=== PATIENT | male | born 2000 | race Caucasian/White ===

== ENCOUNTER 2022-07-19 23:45 | Emergency (ER) | payer BC ==
[2022-07-20] MEDS ORDERED: HYDROCODONE/CHLORPHEN 5 ML/OSYR ONE (00:15)
[2022-07-20] MEDS ORDERED: dexAMETHasone 10 MG/ML VIAL ONE (00:16)
[2022-07-20 01:08] LABS: SARS-COV-2 RT PCR NEGATIVE (NEGATIVE)
--- NOTE | 2022-07-20 01:14 | ER ---
Nurse's Notes [facility] Name: Jamal Juárez Age: 22 yrs Sex: Male : 2000 Arrival Date: 07/19/2022 Time: 23:47 Bed 16 Private MD: Diagnosis: Streptococcal pharyngitis Presentation: 07/19 23:56 Chief complaint: Patient states: My tonsils are swollen and it hurts to swallow. It kd3 started yesterday, I don't think I have been around anyone that is sick. Coronavirus screen: Vaccine status: Patient reports being unvaccinated. Ebola Screen: No symptoms or risks identified at this time. Initial Sepsis Screen: Does the patient meet any 2 criteria? No. Patient's initial sepsis screen is negative. Does the patient have a suspected source of infection? No. Patient's initial sepsis screen is negative. Risk Assessment: Do you want to hurt yourself or someone else? Patient reports no desire to harm self or others. Onset of symptoms was July 19, 2022. 23:56 Method Of Arrival: Ambulatory kd3 23:56 Acuity: MILO 4 kd3 Triage Assessment: 23:57 General: Appears in no apparent distress. Behavior is calm, cooperative. Pain: kd3 Complains of pain in uvula, left aspect of posterior pharynx and right aspect of posterior pharynx. Neuro: Level of Consciousness is awake, alert, obeys commands, Oriented to person, place, time, situation. Respiratory: Airway is patent Trachea midline Respiratory effort is even, unlabored, Respiratory pattern is regular, symmetrical. Historical: - Allergies: 23:57 No Known Allergies; kd3 - Home Meds: 23:57 None [Active]; kd3 - PMHx: 23:57 None; kd3 - Immunization history:: Adult Immunizations up to date. - Social history:: Smoking status: Reported history of juuling and/or vaping. Screenin/27 00:23 [facility] ED Fall Risk Assessment (Adult) History of falling in the last 3 months, aa9 including since admission No falls in past 3 months (0 pts) Confusion or Disorientation No (0 pts) Intoxicated or Sedated No (0 pts) Impaired Gait No (0 pts) Mobility Assist Device Used No (0 pt) Altered Elimination No (0 pt) Score/Fall Risk Level 0 - 2 = Low Risk. Abuse screen: Denies threats or abuse. Denies injuries from another. Nutritional screening: No deficits noted. Tuberculosis screening: No symptoms or risk factors identified. Assessment: 00:22 General: Appears in no apparent distress. comfortable, slender, Behavior is calm, aa9 cooperative, appropriate for age. Pain: Complains of pain in neck Pain began gradually. Neuro: Level of Consciousness is awake, alert, obeys commands, Oriented to person, place, time, situation. Cardiovascular: Patient's skin is warm and dry. Respiratory: Airway is patent Trachea midline Respiratory effort is even, unlabored. GI: No signs and/or symptoms were reported involving the gastrointestinal system. : No signs and/or symptoms were reported regarding the genitourinary system. EENT: Reports difficulty swallowing since today. Derm: Skin is intact, is healthy with good turgor. Musculoskeletal: Swelling present in throat. Vital Signs: 07/19 23:56 BP 154 / 89; Pulse 98; Resp 16; Temp 98.9(O); Pulse Ox 100% on R/A; Weight 70.31 kg; kd3 Height 6 ft. 9 in. (205.74 cm); 23:56 Body Mass Index 16.61 (70.31 kg, 205.74 cm) kd3 ED Course: 23:47 Patient arrived in ED. ja2 23:55 Arthur Ingram NP is PHCP. pm1 23:55 Clemente Lee MD is Attending Physician. pm1 23:57 Triage completed. kd3 23:58 Arm band placed on. kd3 07/20 00:22 COVID-19/FLU A+B Sent. aa9 00:22 Strep Sent. aa9 00:24 Patient has correct armband on for positive identification. Bed in low position. Call aa9 light in reach. Adult w/ patient. 01:29 No provider procedures requiring assistance completed. Patient did not have IV access aa9 during this emergency room visit. Administered Medications: 00:22 Drug: Decadron (dexamethasone) 10 mg Route: IM; Site: left deltoid; aa9 00:53 Follow up: Response: No adverse reaction aa9 00:22 Drug: Tussionex Pennkinetic ER (chlorpheniramine-hydrocodone) Suspension 5 ml Route: PO;aa9 00:53 Follow up: Response: No adverse reaction aa9 Medication: 00:24 VIS not applicable for this client. aa9 Outcome: 01:14 Discharge ordered by . pm1 01:30 Discharged to home ambulatory, with family. aa9 01:30 Condition: stable 01:30 Discharge instructions given to patient, Instructed on discharge instructions, follow up and referral plans. medication usage, Demonstrated understanding of instructions, follow-up care, medications, Prescriptions given X 1. 01:31 Patient left the ED. aa9 Signatures: Arthur Ingram NP MAINTENANCE WORK[employer] pm1 Effie Liriano Kyli, RN RN kd3 Cherie Pineda, RN RN aa9
--- NOTE | 2022-07-20 01:15 | EDPHYS ---
Physician Documentation [facility] Name: Jamal Juárez Age: 22 yrs Sex: Male : 2000 Arrival Date: 07/19/2022 Time: 23:47 Bed 16 Private MD: ED Physician Clemente Lee HPI: 07/20 00:09 This 22 yrs old Male presents to ER via Ambulatory with complaints of Sore Throat. pm1 00:09 The patient presents with sore throat. The patient describes throat pain as raw, pm1 scratchy. Onset: The symptoms/episode began/occurred yesterday. Severity of symptoms: in the emergency department the symptoms are actually worse. Modifying factors: the symptoms are aggravated by fluids, foods, Patient's oral intake status: good. Associated signs and symptoms: The patient has no apparent associated signs or symptoms, Pertinent negatives fever. The patient has not experienced similar symptoms in the past. The patient has not recently seen a physician. Historical: - Allergies: 07/19 23:57 No Known Allergies; kd3 - Home Meds: 23:57 None [Active]; kd3 - PMHx: 23:57 None; kd3 - Immunization history:: Adult Immunizations up to date. - Social history:: Smoking status: Reported history of juuling and/or vaping. ROS: 07/20 00:09 Constitutional: Negative for fever, chills, and weight loss. pm1 Cardiovascular: Negative for chest pain, palpitations, and edema, Respiratory: Negative for shortness of breath, cough, wheezing, and pleuritic chest pain, Abdomen/GI: Negative for abdominal pain, nausea, vomiting, diarrhea, and constipation, Back: Negative for injury and pain, MS/Extremity: Negative for injury and deformity, Skin: Negative for injury, rash, and discoloration, Neuro: Negative for headache, weakness, numbness, tingling, and seizure. ENT: Positive for ear pain, sore throat. All other systems are negative. Exam: 00:09 Constitutional: This is a well developed, well nourished patient who is awake, alert, pm1 and in no acute distress. Head/Face: Normocephalic, atraumatic. 00:09 Skin: Warm, dry with normal turgor. Normal color with no rashes, no lesions, and no evidence of cellulitis. MS/ Extremity: Pulses equal, no cyanosis. Neurovascular intact. Full, normal range of motion. 00:09 Eyes: Exam is negative for acute changes. 00:09 ENT: External ear(s): are unremarkable, Ear canal(s): are normal, TM's: are normal, Mouth: no acute changes, Lips: normal, moist, Oral mucosa: normal, pink and intact, moist, Posterior pharynx: Tonsils: are normal in appearance, Uvula: normal, erythema, that is moderate. 00:09 Neck: Lymph nodes: lymphadenopathy is appreciated, anterior cervical nodes. 00:09 Cardiovascular: Exam negative for acute changes, Rate: normal, Rhythm: regular, Pulses: no pulse deficits are appreciated. 00:09 Respiratory: Exam negative for acute changes, respiratory distress, shortness of breath. 00:09 Neuro: Exam negative for acute changes, Orientation: is normal, Mentation: is normal, Motor: is normal, moves all fours. Vital Signs: 07/19 23:56 BP 154 / 89; Pulse 98; Resp 16; Temp 98.9(O); Pulse Ox 100% on R/A; Weight 70.31 kg; kd3 Height 6 ft. 9 in. (205.74 cm); 23:56 Body Mass Index 16.61 (70.31 kg, 205.74 cm) kd3 MDM: 23:55 Patient medically screened. pm1 07/20 01:13 Data reviewed: vital signs. pm1 01:13 Counseling: I had a detailed discussion with the patient and/or guardian regarding: the pm1 historical points, exam findings, and any diagnostic results supporting the discharge/admit diagnosis, lab results, the need for outpatient follow up, to return to the emergency department if symptoms worsen or persist or if there are any questions or concerns that arise at home. 01:13 Differential diagnosis: Strep, COVID, influenza, RSV. pm1 07/20 00:09 Order name: COVID-19/FLU A+B; Complete Time: 01:12 pm1 07/20 00:09 Order name: Strep; Complete Time: 01:12 pm1 Administered Medications: 00:22 Drug: Decadron (dexamethasone) 10 mg Route: IM; Site: left deltoid; aa9 00:53 Follow up: Response: No adverse reaction aa9 00:22 Drug: Tussionex Pennkinetic ER (chlorpheniramine-hydrocodone) Suspension 5 ml Route: PO;aa9 00:53 Follow up: Response: No adverse reaction aa9 Disposition: 04:32 I reviewed the patient's care provided by the Advanced Practice Provider and agree with bs3 the diagnosis and treatment plan. Disposition Summary: 07/20/22 01:14 Discharge Ordered Location: Home pm1 Problem: new pm1 Symptoms: have improved pm1 Condition: Stable pm1 Diagnosis - Streptococcal pharyngitis pm1 Followup: pm1 - With: Emergency Department - When: As needed - Reason: Worsening of condition Followup: pm1 - With: Private Physician - When: 2 - 3 days - Reason: Recheck today's complaints, Continuance of care, Re-evaluation by your physician Discharge Instructions: - Discharge Summary Sheet pm1 - Strep Throat, Adult pm1 Forms: - Medication Reconciliation Form pm1 - Thank You Letter pm1 - Antibiotic Education pm1 - Prescription Opioid Use pm1 Prescriptions: - Amoxicillin 500 mg Oral Capsule - take 1 capsule by ORAL route every 8 hours for 10 days; 30 tablet; Refills: 0, pm1 Product Selection Permitted Signatures: Dispatcher [employer] EDArthur Alonso NP [employer] AGENT pm1 Ne Escoto RN RN kd3 Cherie Pineda RN RN aa9 Clemente Lee MD MD bs3
[2022-07-20 02:57] VITALS: BP 154/89; TEMP 98.9; O2SAT 100
== END 2022-07-20 01:31 | disposition home or self-care (01) ==
LOC: ER 23:45
DX: J02.0 Streptococcal pharyngitis (principal); Z20.822 Contact with and (suspected) exposure to COVID-19
CPT/HCPCS: 87081; 0240U; 96372; 99283; J1100